=== PATIENT | female | born 1970 | race Hispanic/Latino ===

== ENCOUNTER 2019-01-25 19:15 | Emergency (ER) | payer OTHER ==
[2019-01-25] MEDS ORDERED: Ibuprofen 200 MG TAB ONE (20:35)
--- NOTE | 2019-01-25 21:01 | RAD ---
Radiograph right shoulder 3 views: DATE: 01/25/2019 HISTORY: 48-year-old female status post acute traumatic injury to right shoulder FINDINGS: No fracture or dislocation. IMPRESSION: No fracture.
--- NOTE | 2019-01-25 21:02 | RAD ---
Radiograph right elbow 4 views: DATE: 01/25/2019 HISTORY: 48-year-old female status post acute traumatic injury to right elbow with pain FINDINGS: No fracture, dislocation, or DJD. No joint effusion. IMPRESSION: Normal.
== END 2019-01-25 21:30 | disposition home or self-care (01) ==
LOC: ERS 19:15
DX: M25.511 Pain in right shoulder (principal); M25.521 Pain in right elbow; E11.9 Type 2 diabetes mellitus without complications; Z79.84 Long term (current) use of oral hypoglycemic drugs